=== PATIENT | male | born 1965 | race Caucasian/White ===

== ENCOUNTER → 2016-09-20 | Outpatient (CLI) | payer OTHER ==
--- NOTE | ~2016-09-20 | US10 ---
[id number] [facility] [address] [place], [place] [address] [id number] O MR#: [id number] Acc #: [id number] NAME: NACHO WALKER : 1965 SEX: M STUDY DATE/TIME: 09/20/2016 7:31 UNIT: CGUS ROOM: STUDY DESCRIPTION: US Aorta Complete Attending Physician: Jl Randolph M.D. Referring Physician: Jl Randolph M.D. Ordering Physician: Jl Randolph M.D. Primary Care Physician: Sung Not Listed MEDICAL IMAGING REPORT This report is preliminary unless electronic signature is present EXAM Ultrasound of the abdominal aorta with color flow Doppler, 09/20/2016. HISTORY Screening for abdominal aortic aneurysm. Family history of heart disease and stent placement. Abnormal EKG. FINDINGS Ultrasound of the abdominal aorta was performed as well as Doppler waveform spectral analysis and color flow Doppler imaging. The proximal, mid and distal aspects of the abdominal aorta measure 2.6 cm, 2.4 cm, and 1.5 cm, respectively. The right and left common iliac arteries measured 1.3 cm and 1.2 cm, respectively. There is no ultrasound evidence of abdominal aortic aneurysm. Color-flow Doppler images show normal blood flow throughout the abdominal aorta. Only trace aortic plaque was identified. IMPRESSION No evidence of abdominal aortic aneurysm. Dictated by... Forest Smith M.D. THIS IS AN ELECTRONICALLY VERIFIED REPORT Forest Smith M.D. at 09/22/2016 8:29 AM ELMER/martin TD: 09/21/2016 10:00 JOB #: [id number] MEDICAL IMAGING REPORT Page 1 of 1 COPY
--- NOTE | ~2016-09-20 | ST ---
Unit #: [id number] #: [id number] Patient: NACHO WALKER [id number] [address] [address] [id number] O MR#: [id number] NAME: NACHO WALKER : 1965 SEX: M STUDY DATE/TIME: UNIT: US ROOM: STUDY DESCRIPTION: Stress test Attending Physician: Jl Randolph M.D. Referring Physician: Jl Randolph M.D. Primary Care Physician: Generic Doctor Not In System CARDIOLOGY REPORT EXAM Treadmill exercise stress test DESCRIPTION OF PROCEDURE AND FINDINGS Baseline EKG shows normal sinus rhythm and is within normal limits. Patient exercised for a total duration of 12 minutes, achieving a heart rate of 144 per minute which is submaximal predicted for his age. He denied any chest discomfort and no clinical, hemodynamic or electrocardiographic abnormalities were detected. Recovery phase was uneventful. No arrhythmias were precipitated. CONCLUSION 1. These findings suggest low probability for significant ischemic heart disease. 2. Fair exercise tolerance. 3. No exercise-induced angina. Dictated by... Carmenza Vera/guido TD: 09/21/2016 20:28 JOB #: [id number] CARDIOLOGY REPORT Page 1 of 1 X Jl Randolph MD CARDIOLOGY REPORT
== END | disposition home or self-care (01) ==
LOC: CGUS 06:55
DX: I71.4 Abdominal aortic aneurysm, without rupture (principal); R94.31 Abnormal electrocardiogram [ECG] [EKG]; R94.39 Abnormal result of other cardiovascular function study; Z82.49 Family history of ischemic heart disease and other diseases of the circulatory system
CPT/HCPCS: 76770; 93017